=== PATIENT | male | born 1945 | race Caucasian/White ===

== ENCOUNTER 2023-06-05 08:14 | Outpatient (AMB) | payer MEDICARE, OTHER, SELFPAY ==
--- NOTE | 2023-06-05 08:34 | AM.OFFWIN_ITS ---
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 Reporting symptoms of sinus congestion, sore throat and difficulty swallowing. Low-grade fever. No family member is sick. No recent travel. Patient reports symptoms of malaise and fatigue. PFSH Social History Patient Tobacco Use Status: Never used Tobacco Physical Exam Vital Signs: Last Vital Signs Temp 98.4 F 06/05/23 08:35 Pulse 77 06/05/23 08:35 BP 130/50 L 06/05/23 08:35 Pulse Ox 97 06/05/23 08:35 Oxygen Delivery Method Room Air 06/05/23 08:35 BMI result Body Mass Index 25.9 Const General: cooperative and healthy appearing Nutritional Appearance: well nourished Orientation/consciousness: patient oriented x3 Limitations: no limitations HEENT Head: Yes normal to inspection Eyes General: appearance normal, both eyes and all related structures Neck Neck: Yes normal visual inspection Chest Chest palpation & inspection: normal palpation of entire chest wall Resp Effort & Inspection: normal respiratory effort Neuro General: patient oriented x3 Results AMB Rapid Strep AMB Rapid Strep Negative Last Edit by DEEP Bolaños on 06/05/23 08:48 Results Reviewed Results Reviewed: Laboratory Last Values Strep Scn [facility] Negative 06/05/23 08:47 Assessment & Plan Assessment & Plan (1) Upper respiratory tract infection: Code(s): J06.9 - Acute upper respiratory infection, unspecified Plan: Antibiotics ordered. Increase fluid intake. Tylenol for aches and pains. If symptoms worsen, follow-up here for a recheck. Orders: Orders AMB Rapid Strep Screen Today Z13.9 - Encounter for screening, unspecified SARS-CoV2/FLU/RSV Today R43.9 - Unspecified disturbances of smell and taste Coding Level of Care Code Est Pt Level 3 (81077) Diagnoses Upper respiratory tract infection J06.9
[2023-06-05 08:35] VITALS: BP 130/50; PULSE 77; TEMP 36.9; O2SAT 97; BMI 25.9
== END 2023-06-05 09:24 | disposition home or self-care (01) ==
PROVIDERS: PCP Internal Medicine; Visit Provider Internal Medicine
DX: J06.9 Acute upper respiratory infection, unspecified (principal); Z13.9 Encounter for screening, unspecified
CPT/HCPCS: 87880; 99213

== ENCOUNTER 2023-06-05 10:33 | Outpatient (REF) | payer MEDICARE, OTHER, SELFPAY ==
[2023-06-05 13:00] LABS: Influenza A PCR NEGATIVE (Negative); Influenza B PCR NEGATIVE (Negative); Resp Syncy Virus RNA Qual PCR NEGATIVE (Negative); SARS COV2 PCR INHOUSE NEGATIVE (Negative)
== END 2023-06-05 10:34 | disposition home or self-care (01) ==
LOC: HO.LAB 10:33
PROVIDERS: Visit Provider Internal Medicine
DX: R43.9 Unspecified disturbances of smell and taste (principal); Z20.822 Contact with and (suspected) exposure to COVID-19
CPT/HCPCS: 0241U

== ENCOUNTER 2023-06-16 09:34 | Outpatient (AMB) | payer MEDICARE, OTHER, SELFPAY ==
[2023-06-16 09:37] VITALS: BP 134/76; PULSE 70; TEMP 36.4; O2SAT 98; BMI 25.9
--- NOTE | 2023-06-16 09:37 | MHC.OFFWIV ---
Intake Vital Signs 06/16/23 09:37 Height 5 ft 3 in Weight 146 lb BMI 25.9 BP 134/76 Blood Pressure Location Lt brachial Position Sitting Pulse 70 Pulse Source Pulse Oximeter Temp 97.6 F Temp Source Temporal Artery Scan Pulse Oximetry (%) 98 Oxygen Delivery Method Room Air Intake Visit Reasons: EP Cough/Pos Covid [phone] Intake Note: pt is here for c/o cough 3x weeks Patient Tobacco Use Status: Never used Tobacco Allergies No Known Allergies Allergy (Verified 06/16/23 09:37) Do you need a note to return to daycare/school/sports/work: No HPI HPI Comments History of Present Illness Details The patient presents to urgent care for evaluation of COVID positive test at home. He states that he has been coughing for the past 3 weeks. He started to feel unwell yesterday and his tested positive for COVID this morning. He took a testing was positive as well. No fever chills. No chest pain shortness of breath. PFSH Social History Patient Tobacco Use Status: Never used Tobacco Review of Systems ENT Denies dizziness, Reports nasal congestion and Reports sore throat Card Denies rapid heart rate, Denies dyspnea and Denies dyspnea on exertion Resp Denies dyspnea and Denies dyspnea on exertion GI Denies dyspepsia and Denies heartburn Musc Denies arthralgias and Denies muscle cramps Neuro Denies dizziness, Denies focal weakness and Denies Other visual disturbances Physical Exam Vital Signs: Last Vital Signs Temp 97.6 F 06/16/23 09:37 Pulse 70 06/16/23 09:37 BP 134/76 06/16/23 09:37 Pulse Ox 98 06/16/23 09:37 Oxygen Delivery Method Room Air 06/16/23 09:37 BMI result Body Mass Index 25.9 Const General: healthy appearing and no acute distress HEENT Mouth: Normal oral and palatal mucosa present Resp Effort & Inspection: normal respiratory effort and able to speak in complete sentences Auscultation: clear to auscultation bilaterally Cardio Rate: regular rate Rhythm: regular rhythm Assessment & Plan Assessment & Plan (1) COVID: Code(s): U07.1 - COVID-19 Plan COVID- will treat with Paxil vent. Patient comfortable with this plan. Recommend close follow-up to PCP. Coding Level of Care Code Est Pt Level 3 (75475) Diagnoses COVID U07.1
== END 2023-06-16 10:06 | disposition home or self-care (01) ==
PROVIDERS: PCP Internal Medicine; Visit Provider Emergency Medicine
DX: U07.1 COVID-19 (principal)
CPT/HCPCS: 99213